=== PATIENT | female | born 1970 | race Caucasian/White ===

== ENCOUNTER 2016-11-28 08:22 | Outpatient (CLI) | payer BC ==
[~2016-11-28 08:22] MED LIST: LEVO150T PO; LEVO1TAB60 PO; VALS1TAB72 PO
== END 2016-11-28 18:27 | disposition home or self-care (01) ==
LOC: SUS 08:22
PROVIDERS: ATTEND Specialist
DX: K76.89 Other specified diseases of liver (principal)
CPT/HCPCS: 76536-TC; 76700-TC